=== PATIENT | female | born 1935 | race Caucasian/White ===

== ENCOUNTER 2017-09-04 10:03 | Inpatient (IN) | payer MEDICARE, BC ==
[~2017-09-04] VITALS: Ht 152.4 cm; Wt 68.0 kg
[~2017-09-04 10:03] MED LIST: ESCI20TA PO; FLUT1DIS28 IH; LEVO75TA7 PO; METO50TA16 PO; NATE120T6 PO; OXYB5TAB11 PO; SITA50TA PO; ZOLP5TAB2 PO
[2017-09-04] MEDS ORDERED: RIVA10TA PO (10:24)
[2017-09-04] MEDS ORDERED: TRAZ-144 PO (10:24)
[2017-09-04] MEDS ORDERED: LISI2.5T2 PO (10:24)
[2017-09-04] MEDS ORDERED: TIOT18CA3 INH (10:24)
[2017-09-04] MEDS ORDERED: ATOR10TA PO (10:24)
[2017-09-04] MEDS ORDERED: TRAV5DRO EACHEYE (10:24)
[2017-09-04] MEDS ORDERED: PANT40TA2 PO (10:24)
--- NOTE | 2017-09-04 10:37 | NUR ---
PT BIBA W/ ALTERED MENTAL STATUS. PT IN BED. IV STARTED. ASSOCIATE STORE DIRECTOR AT BEDSIDE DRAWING LABS. AWAITING FURTHER MD ORDERS. VS STABLE. WILL CONTINUE TO MONITOR.
[2017-09-04 10:57] LABS: BASOPHILS % (AUTO) 0.5 % (0.0-2.0); EOSINOPHILS # (AUTO) 0.2 K/uL (0.0-0.7); EOSINOPHILS % (AUTO) 2.9 % (0.0-7.0); HEMATOCRIT 32.6 % (31.2-41.9); HEMOGLOBIN 10.8 g/dL (10.9-14.3); LYMPHOCYTES # (AUTO) 0.5 K/uL (20.0-40.0); LYMPHOCYTES % (AUTO) 9.1 % (20.5-51.5); MEAN CORPUSCULAR HEMOGLOBIN 29.4 uug (24.7-32.8); MEAN CORPUSCULAR HGB CONC 33 g/dL (32.3-35.6); MEAN CORPUSCULAR VOLUME 88.4 fL (75.5-95.3); MONOCYTES # (AUTO) 0.3 K/uL (2.0-10.0); MONOCYTES % (AUTO) 6.2 % (0.0-11.0); NEUTROPHILS # (AUTO) 4.3 K/uL (1.8-8.9); NEUTROPHILS % (AUTO) 81.3 % (38.5-71.5); PLATELET COUNT (AUTO) 128 K/uL (179-408); RED BLOOD CELL COUNT(AUTO) 3.68 MIL/uL (3.63-4.92); WHITE BLOOD COUNT (AUTO) 5.3 K/uL (3.8-11.8)
[2017-09-04 11:17] LABS: CARBON DIOXIDE 36 mmol/L (21-32); CHLORIDE 105 mmol/L (98-107); CREATININE 1.1 mg/dL (0.6-1.3); GLUCOSE 152 mg/dL (74-106); POTASSIUM 3.8 mmol/L (3.5-5.1); UREA NITROGEN, BLOOD 10 mg/dL (7-18)
[2017-09-04 11:22] LABS: ALANINE AMINOTRANSFERASE 14 U/L (14-59); ALKALINE PHOSPHATASE 59 U/L (50-136); ASPARTATE AMINOTRANSFERASE 18 U/L (15-37); BILIRUBIN,DIRECT 0.1 mg/dL (0.0-0.2); BILIRUBIN,TOTAL 0.5 mg/dL (0.2-1.0); TOTAL PROTEIN, SERUM 6.5 g/dL (6.4-8.2)
[2017-09-04 11:29] LABS: *BILIRUBIN,URIN NEGATIVE (NEGATIVE); *BLOOD, URINE 2+ (NEGATIVE); *CLARITY,URINE CLOUDY (CLEAR); *COLOR,URINE YELLOW (YELLOW); *KETONES,URINE NEGATIVE (NEGATIVE); *PROTEIN,URINE NEGATIVE (NEGATIVE); *UROBILINOGEN,URINE 0.2 E.U./dl (NORMAL); LEUKOCYTE ESTERASE ,URINE 2+ (NEGATIVE); NITRITE, URINE NEGATIVE (NEGATIVE); UGLUCOSE NEGATIVE (NEGATIVE)
[2017-09-04] MEDS ORDERED: LORAZEPAM 2 MG/1 ML VIAL IV ONE (11:30)
[2017-09-04] MEDS ORDERED: IV NORMAL SALINE 1000 ML BAG IV ONE (11:45)
[2017-09-04] MEDS ORDERED: LEVOFLOXACIN 750MG/D5W 150 ML IV ONE ×2 (11:45→12:15)
[2017-09-04] MEDS ORDERED: CLINDAMYCIN PHOSPHATE IV 600 MG in IV DEXTROSE 5% 100 ML IV ONE (11:45)
[2017-09-04 11:46] LABS: RBC,URINE 20-50 /HPF (0-3); WBC,URINE TNTC /HPF (0-3)
[2017-09-04 11:47] LABS: BACTERIA,URINE MODERATE /HPF (NONE SEEN); MUCUS,URINE MODERATE /LPF (0-FEW); SQUAMOUS EPITHELIAL CELL,UR FEW /HPF (NONE SEEN)
[2017-09-04] MEDS ORDERED: CLINDAMYCIN PHOSPHATE 600 MG/4 ML VIAL ONE (12:15)
[2017-09-04] MEDS ORDERED: GENTAMICIN SULFATE INJ 80 MG in IV DEXTROSE 5% 100 ML IV ONE (12:15)
--- NOTE | 2017-09-04 12:15 | NUR ---
KIMMY HERNANDEZ. WITNESS BY 2 FEMALE NURSING STUDENTS FROM [facility].
--- NOTE | 2017-09-04 12:28 | NUR ---
PT IN BED. PT IS ASLEEP. VS STABLE. PT RECEIVING IV MEDS. FAMILY AT BEDSIDE. FAMILY CONSULTED BY MD. AWAITING FURTHER MD ORDERS.
[2017-09-04] MEDS ORDERED: GENTAMICIN SULFATE 80 MG/2 ML VIAL ONE (13:46)
--- NOTE | 2017-09-04 15:17 | NUR ---
SBAR REPORT TO 2ND FLOOR RONALD JIMENEZ. PT REC'D ALL ANTIBIOTICS, PT RECEIVED 1100 ML ODF NS AND RONALD WHITTAKER COMPLETED THE 2100 ML INFUSION. ADMIT ORDER/BELONGINGS LIST COMPLETED. PT TO RMM 225 VIA GUERNEY/O2/MONITOR.
[2017-09-04 15:45] VITALS: BP 150/86
[2017-09-04] MEDS ORDERED: ACETAMINOPHEN 650 MG SUPP.RECT RC PRN (19:15)
[2017-09-04] MEDS ORDERED: LEVOFLOXACIN 500 MG/D5W 500 MG in PREMIXED 1 EACH IV SCH (19:15)
[2017-09-04] MEDS ORDERED: MORPHINE SULFATE 2 MG/1 ML DISP.SYRIN IV PRN (19:15)
[2017-09-04] MEDS ORDERED: ENALAPRILAT DIHYDRATE INJ 2.5 MG in IV NORMAL SALINE 50 ML IV PRN (19:15)
[2017-09-04] MEDS ORDERED: ALBUTEROL SULFATE 2.5 MG/3 ML NEBU NEB PRN (19:15)
--- NOTE | 2017-09-04 19:46 | NUR ---
CLINICAL PHARMACY NOTE:VANCOMYCIN DOSING Request for vancomycin dosing on 82 y/o female 5' 150lbs for uti.sepsis/pneumonia Temp 98.5 BUN 10 Scr 1.1 WBC 5.3 also on Levaquin Give vancomycin 1gm ivpb tonight. Ordered random vancomycin level in AM. Will dose according to levels.
[2017-09-04 20:51] VITALS: BP 165/79
[2017-09-04] MEDS ORDERED: FAMOTIDINE. 20 MG/2 ML VIAL IV SCH (21:00)
[2017-09-04] MEDS ORDERED: VANCOMYCIN IV 1 G in PREMIXED 0 EACH IV ONE (21:00)
[2017-09-04 21:16] VITALS: BP 147/72
[2017-09-04] MEDS: FAMOTIDINE. 20 MG/2 ML VIAL IV SCH (21:35)
[2017-09-04] MEDS: LORAZEPAM 2 MG/1 ML VIAL IV PRN (21:57)
[2017-09-04] MEDS: IV D5 1/2 NS 1000 ML 1,000 ML IV PRN (23:55)
[2017-09-05 00:08] VITALS: BP 146/68
[2017-09-05] MEDS: MORPHINE SULFATE 4 MG/1 ML DISP.SYRIN IV PRN ×2 (01:40→20:58)
[2017-09-05] MEDS ORDERED: DEXTROSE 50% 50 ML DISP.SYRIN IV PRN (01:45)
--- NOTE | 2017-09-05 06:28 | NUR ---
NURSING CLINICAL NOTE: Pt is still lethargic, and non-compliant with the staff. on 3 L NC, sating well. mild bloody drainage noticed on the folly site. no acute distress noted throughout the night. Will cont to monitor and endorse pt to the next RN to cont the care.
[2017-09-05] MEDS: BLOOD SUGAR DIAGNOSTIC 1 EACH STRIP VI SCH ×4 (06:40→20:58)
[2017-09-05 06:43] VITALS: BP 147/94
[2017-09-05 06:59] LABS: ALANINE AMINOTRANSFERASE 13 U/L (14-59); ALKALINE PHOSPHATASE 53 U/L (50-136); ASPARTATE AMINOTRANSFERASE 15 U/L (15-37); BILIRUBIN,TOTAL 0.7 mg/dL (0.2-1.0); CARBON DIOXIDE 35 mmol/L (21-32); CHLORIDE 105 mmol/L (98-107); CHOLESTEROL 101 mg/dL (<200); CREATININE 0.9 mg/dL (0.6-1.3); GLUCOSE 102 mg/dL (74-106); HDL CHOLESTEROL 70 mg/dL (40-60); MAGNESIUM 1.8 mg/dL (1.8-2.4); PHOSPHOROUS 3.7 mg/dL (2.5-4.9); POTASSIUM 3.9 mmol/L (3.5-5.1); TOTAL PROTEIN, SERUM 6.2 g/dL (6.4-8.2); TRIGLYCERIDES 71 MG/DL (30-150); UREA NITROGEN, BLOOD 10 mg/dL (7-18)
[2017-09-05 07:29] LABS: THYROID STIMULATING HORMONE 0.474 mIU/mL (0.358-3.740)
[2017-09-05 07:35] LABS: BASOPHILS % (AUTO) 0.7 % (0.0-2.0); EOSINOPHILS # (AUTO) 0.1 K/uL (0.0-0.7); EOSINOPHILS % (AUTO) 2.6 % (0.0-7.0); HEMATOCRIT 32.3 % (31.2-41.9); HEMOGLOBIN 10.9 g/dL (10.9-14.3); LYMPHOCYTES # (AUTO) 0.6 K/uL (20.0-40.0); LYMPHOCYTES % (AUTO) 14.9 % (20.5-51.5); MEAN CORPUSCULAR HEMOGLOBIN 30.5 uug (24.7-32.8); MEAN CORPUSCULAR HGB CONC 34 g/dL (32.3-35.6); MEAN CORPUSCULAR VOLUME 90.5 fL (75.5-95.3); MONOCYTES # (AUTO) 0.4 K/uL (2.0-10.0); MONOCYTES % (AUTO) 10.9 % (0.0-11.0); NEUTROPHILS # (AUTO) 2.8 K/uL (1.8-8.9); NEUTROPHILS % (AUTO) 70.9 % (38.5-71.5); PLATELET COUNT (AUTO) 128 K/uL (179-408); RED BLOOD CELL COUNT(AUTO) 3.57 MIL/uL (3.63-4.92)
[2017-09-05] MEDS: ONDANSETRON 4 MG/2 ML VIAL IV PRN ×2 (07:55→20:43)
[2017-09-05] MEDS: FAMOTIDINE. 20 MG/2 ML VIAL IV SCH ×2 (09:39→20:43)
[2017-09-05] MEDS: IV D5 1/2 NS 1000 ML 1,000 ML IV PRN (11:28)
[2017-09-05 11:36] VITALS: BP 123/81
[2017-09-05] MEDS: LEVOFLOXACIN 250MG /D5W 250 MG in PREMIXED 1 EACH IV SCH (15:12)
--- NOTE | 2017-09-05 15:18 | NUR ---
CLINICAL PHARMACY NOTE:VANCOMYCIN DOSING Continue vancomycin dosing on 82 y/o female 5' 150lbs for uti.sepsis/pneumonia Temp 99.2 BUN 10 Scr 0.9 WBC 4.0 also on Levaquin Ordered random vancomycin level tonight at 1900. Will dose according to levels. Addendum: 09/05/17 at 2002 by RAZIA ANNE ADM RANDOM LEVEL LESS THAN 0.8. GIVE VANCOMYCIN 1000MG IVPB Q24H ESTIMATE TROUGH 16-18. WILL ORDER TROUGH LEVEL PRIOR TO 4TH DOSE
[2017-09-05 15:23] VITALS: BP 158/77
[2017-09-05 20:00] VITALS: BP_SYST 138; BP_SYST 148; BP_DIAS 66; BP_DIAS 76
[2017-09-05] MEDS: LACTOBACILLUS RHAMNOSUS GG 1 EACH CAPSULE PO SCH (20:07)
[2017-09-05] MEDS: VANCOMYCIN IV 1 G in PREMIXED 0 EACH IV SCH (20:43)
[2017-09-06 00:01] VITALS: BP 130/73
[2017-09-06 04:00] VITALS: BP 156/60
[2017-09-06] MEDS: ONDANSETRON 4 MG/2 ML VIAL IV PRN (05:02)
[2017-09-06] MEDS: MORPHINE SULFATE 4 MG/1 ML DISP.SYRIN IV PRN (05:02)
[2017-09-06] MEDS: IV D5 1/2 NS 1000 ML 1,000 ML IV PRN ×2 (05:03→20:54)
--- NOTE | 2017-09-06 05:26 | NUR ---
PT SLEPT INTERMITTENTLY THROUGH THE NIGHT AND WAS EASILY AWOKEN, PT COMPLAINED OF PAIN, MOANING PAIN AND SAYING SHE IS THROWING UP WHILE SHE WAS ONLY COUGHING, PAIN MEDICATION AND ZOFRAN WAS GIVEN AND WAS EFFECTIVE. PT WAS SUCTIONED THROUGH THE NIGHT,SCANT AMOUNT OF THICK MUCOUS WAS REMOVED. PT IS TOLERATING WELL ON 3L NC. PT IS RESTLESS AND IN THE MORNING COMBATIVE, PT HAD MITTENS ON SINCE PT WAS TRYING PULLING OUT HER LINES AND IN THE MORNING PT WOULD HIT STAFF. ALL NEEDS MET, SAFETY MEASURES ARE IN PLACE, CALL LIGHT WITHIN REACH, BED ALARM IS ON. Addendum: 09/06/17 at 0659 by TRISTEN TORRES RN PT HAD SLIGHT FEVER DURING THE SHIFT, COOLING MEASURES PROVIDED AND EFFECTIVE.
[2017-09-06 06:12] LABS: ABG BASE EXCESS 6.2 mmol/L; ABG HCO3 34.8 mmol/L; ABG PCO2 73.6 mmHg (35.0-45.0); ABG PH 7.293 (7.350-7.450); ABG PO2 74.1 mmHg (75.0-100.0); ABG SITE RIGHT BRACHIAL; ABG TOTAL HEMOGLOBIN 11.6 G/dL (12.0-16.0); COHb 2.6 % (0.5-1.5); MetHb 0.5 % (0.0-1.5); O2Hb 92.2 % (94.0-97.0); VENT MODE Nasal Cannula
[2017-09-06] MEDS: BLOOD SUGAR DIAGNOSTIC 1 EACH STRIP VI SCH ×4 (06:37→21:03)
--- NOTE | 2017-09-06 06:54 | NUR ---
PT HAD A CRITICAL ABG, PT'S pCO2 WAS ELEVATED, NOTIFIED COUNTER CUTTER BRANDON. ORDERS FOR BIPAP WAS ORDERED, NOTIFIED RT.
[2017-09-06] MEDS: LACTOBACILLUS RHAMNOSUS GG 1 EACH CAPSULE PO SCH ×2 (09:00→20:43)
[2017-09-06] MEDS: FAMOTIDINE. 20 MG/2 ML VIAL IV SCH ×2 (10:00→20:54)
--- NOTE | 2017-09-06 10:07 | NUR ---
SUCTIONED SMALL AMOUNTS OF THIN BLOODY AND YELLOW SECRETIONS VIA NT SUCTION. PLACED BIPAP @ 0720 PER MD ORDERS. SETTINGS OF 15/5, RATE 16, 40%. SPO2 AT 94%. NO COMPLICATIONS AND NO SOB AT THIS TIME. WILL CONTINUE TO MONITOR.
[2017-09-06 11:39] VITALS: BP 99/51
--- NOTE | 2017-09-06 13:37 | NUR ---
CLINICAL PHARMACY NOTE:VANCOMYCIN DOSING S;Continue vancomycin dosing on 82 y/o female 5' 150lbs for uti.sepsis/pneumonia O:Temp 101.2 BUN 10(09/05) Scr 0.9 (09/05) WBC 4.0(09/05) also on Levaquin A/P: Will continue Vancomycin 1 gram IV every 24hrs (third dose due tonight at 2100) and draw trough by 4th dose(not ordered yet). Will follow daily.
[2017-09-06] MEDS: LORAZEPAM 2 MG/1 ML VIAL IV PRN (13:39)
[2017-09-06] MEDS: LEVOFLOXACIN 250MG /D5W 250 MG in PREMIXED 1 EACH IV SCH (14:24)
[2017-09-06 15:01] LABS: BASOPHILS % (AUTO) 0.6 % (0.0-2.0); EOSINOPHILS # (AUTO) 0.1 K/uL (0.0-0.7); EOSINOPHILS % (AUTO) 1.5 % (0.0-7.0); HEMATOCRIT 34.1 % (31.2-41.9); HEMOGLOBIN 11.4 g/dL (10.9-14.3); LYMPHOCYTES # (AUTO) 0.5 K/uL (20.0-40.0); LYMPHOCYTES % (AUTO) 13.5 % (20.5-51.5); MEAN CORPUSCULAR HEMOGLOBIN 29.4 uug (24.7-32.8); MEAN CORPUSCULAR HGB CONC 34 g/dL (32.3-35.6); MEAN CORPUSCULAR VOLUME 87.5 fL (75.5-95.3); MONOCYTES # (AUTO) 0.5 K/uL (2.0-10.0); MONOCYTES % (AUTO) 12.4 % (0.0-11.0); NEUTROPHILS # (AUTO) 2.8 K/uL (1.8-8.9); PLATELET COUNT (AUTO) 142 K/uL (179-408); RED BLOOD CELL COUNT(AUTO) 3.89 MIL/uL (3.63-4.92)
[2017-09-06 15:09] LABS: ALANINE AMINOTRANSFERASE 10 U/L (14-59); ALKALINE PHOSPHATASE 54 U/L (50-136); ASPARTATE AMINOTRANSFERASE 13 U/L (15-37); BILIRUBIN,TOTAL 0.6 mg/dL (0.2-1.0); CARBON DIOXIDE 37 mmol/L (21-32); CHLORIDE 102 mmol/L (98-107); CREATININE 0.9 mg/dL (0.6-1.3); GLUCOSE 145 mg/dL (74-106); MAGNESIUM 1.8 mg/dL (1.8-2.4); PHOSPHOROUS 3.8 mg/dL (2.5-4.9); POTASSIUM 3.8 mmol/L (3.5-5.1); TOTAL PROTEIN, SERUM 6.2 g/dL (6.4-8.2); UREA NITROGEN, BLOOD 7 mg/dL (7-18)
[2017-09-06 16:04] VITALS: BP 90/68
--- NOTE | 2017-09-06 17:57 | NUR ---
PT IS RESTING AND ON THE BIPAP AT 40%. PT SHOWING NO SIGNS OF RESPIRATORY DISTRESS. O2 SATURATION OF 97%. PT GIVEN AN ATIVAN TODAY FOR AGITATION. PT WAS PULLING OUT LINES AND TAKING OFF FACE MASK. PT IS A0X1. VITALS STABLE. CONTINUE TO MONITOR.
[2017-09-06 19:00] VITALS: BP 124/70
[2017-09-06] MEDS: VANCOMYCIN IV 1 G in PREMIXED 0 EACH IV SCH (20:54)
[2017-09-06] MEDS: INSULIN REGULAR, HUMAN 300 UNIT/3 ML VIAL SQ PRN (21:08)
[2017-09-07] VITALS: BP 123/73
[2017-09-07 04:00] VITALS: BP_SYST 124; BP_SYST 135; BP_DIAS 51; BP_DIAS 76
--- NOTE | 2017-09-07 06:21 | NUR ---
pt on bipap overnight ,intermittent agitation, yelling and cursing pt very confused, disoriented,pt was restless during pericare and bedbath last night then lynch pulled out. no bleeding noted . incontinent with urine this morning,no bm. kept npo, midline intact covered with acewrap. blood return noted.continue with iv fluids.low grade fever,bp wnl. will continue to monitor.mittens kept on and in place.
[2017-09-07 06:23] LABS: ABG BASE EXCESS 8.2 mmol/L; ABG PCO2 67.1 mmHg (35.0-45.0); ABG PH 7.347 (7.350-7.450); ABG PO2 108.4 mmHg (75.0-100.0); ABG SITE RIGHT BRACHIAL; ABG TOTAL HEMOGLOBIN 11.9 G/dL (12.0-16.0); MetHb 0.2 % (0.0-1.5); O2Hb 96.9 % (94.0-97.0); VENT MODE BIPAP
[2017-09-07 06:37] LABS: BASOPHILS % (AUTO) 0.4 % (0.0-2.0); EOSINOPHILS # (AUTO) 0.1 K/uL (0.0-0.7); EOSINOPHILS % (AUTO) 1.4 % (0.0-7.0); HEMATOCRIT 31.6 % (31.2-41.9); HEMOGLOBIN 10.6 g/dL (10.9-14.3); LYMPHOCYTES # (AUTO) 0.9 K/uL (20.0-40.0); LYMPHOCYTES % (AUTO) 16.6 % (20.5-51.5); MEAN CORPUSCULAR HEMOGLOBIN 29.6 uug (24.7-32.8); MEAN CORPUSCULAR HGB CONC 33 g/dL (32.3-35.6); MEAN CORPUSCULAR VOLUME 88.8 fL (75.5-95.3); MONOCYTES # (AUTO) 0.7 K/uL (2.0-10.0); MONOCYTES % (AUTO) 13.4 % (0.0-11.0); NEUTROPHILS # (AUTO) 3.7 K/uL (1.8-8.9); NEUTROPHILS % (AUTO) 68.2 % (38.5-71.5); PLATELET COUNT (AUTO) 160 K/uL (179-408); RED BLOOD CELL COUNT(AUTO) 3.56 MIL/uL (3.63-4.92); WHITE BLOOD COUNT (AUTO) 5.4 K/uL (3.8-11.8)
[2017-09-07] MEDS: BLOOD SUGAR DIAGNOSTIC 1 EACH STRIP VI SCH ×4 (06:57→21:00)
[2017-09-07 07:04] LABS: CARBON DIOXIDE 33 mmol/L (21-32); CHLORIDE 100 mmol/L (98-107); CREATININE 0.9 mg/dL (0.6-1.3); MAGNESIUM 1.6 mg/dL (1.8-2.4); PHOSPHOROUS 2.9 mg/dL (2.5-4.9); POTASSIUM 3.3 mmol/L (3.5-5.1); UREA NITROGEN, BLOOD 6 mg/dL (7-18)
--- NOTE | 2017-09-07 07:16 | NUR ---
PT RECEIVED WITH BIPAP OFF. PT REMOVED BIPAP AND WAS PLACED ON SIMPLE 02 MASK AT 8LPM . PT SPO2 98 AND HR 92. PT SHOWS NO SIGNS OF SOB AND IS TOLERATING SIMPLE 02 MASK FINE
--- NOTE | 2017-09-07 07:52 | NUR ---
PT RESTLESS AND KEEPS ON REMOVING 02 MASK. PT THEN PLACED ON 2LPM NC WITH SPO2 AT 98% SHOWING NO SIGNS OF DISTRESS. BIPAP REMAINS ON STAND BY
[2017-09-07 08:41] LABS: GLUCOSE 399 mg/dL (74-106)
[2017-09-07] MEDS: INSULIN REGULAR, HUMAN 300 UNIT/3 ML VIAL SQ PRN ×2 (08:58→17:41)
[2017-09-07] MEDS: LACTOBACILLUS RHAMNOSUS GG 1 EACH CAPSULE PO SCH ×2 (09:54→20:18)
[2017-09-07] MEDS: FAMOTIDINE. 20 MG/2 ML VIAL IV SCH ×2 (09:54→20:17)
[2017-09-07] MEDS: LORAZEPAM 2 MG/1 ML VIAL IV PRN ×2 (10:53→22:00)
[2017-09-07 11:59] VITALS: BP 106/61
[2017-09-07] MEDS: LEVOFLOXACIN 250MG /D5W 250 MG in PREMIXED 1 EACH IV SCH (13:03)
[2017-09-07] MEDS ORDERED: POTASSIUM CHLORIDE 50 ML IV SCH (13:15)
[2017-09-07] MEDS ORDERED: POTASSIUM CHLORIDE 10 MEQ in IV DEXTROSE 5% 50 ML IV SCH (13:30)
[2017-09-07] MEDS: MAGNESIUM SULFATE/D5W 100 ML IV SCH ×2 (13:58→14:38)
[2017-09-07] MEDS: MORPHINE SULFATE 4 MG/1 ML DISP.SYRIN IV PRN (14:07)
--- NOTE | 2017-09-07 14:07 | NUR ---
PT GIVEN PAIN MEDICATION. PT SCREAMING "PAIN!" PT IS UNABLE TO VERBALIZE LEVEL OF PAIN. FLACC WAS USED TO DETERMINE PT PAIN. PT APPEARS IN PAIN 10/10. CONTINUE TO MONITOR.
--- NOTE | 2017-09-07 16:15 | NUR ---
CLINICAL PHARMACY NOTE:VANCOMYCIN DOSING S;Continue vancomycin dosing on 82 y/o female 5' 150lbs for uti.sepsis/pneumonia O:Temp 100 BUN 6 Scr 0.9 WBC 5.4 also on Levaquin A/P: Will continue Vancomycin 1 gram IV every 24hrs (third dose due tonight at 2100) and draw trough by 4th dose(due tonight at 2030). RN endorsed to hold dose if Tr >20. Will check level in am and adjust as needed. Will follow daily.
[2017-09-07 16:21] VITALS: BP 116/66
--- NOTE | 2017-09-07 19:07 | NUR ---
PT OBSERVED RESTING IN BED CALM, PT GIVEN ATIVAN FOR AGITATION AND MORPHINE FOR PAIN. BOTH MEDS WERE EFFECTIVE. PT SHOWS NO SIGNS OF RESPIRATORY DISTRESS AND BED AT LOWEST LOCKED POSITION . CONTINUE TO MONITOR.
[2017-09-07 20:00] VITALS: BP 94/69
[2017-09-07] MEDS: IV D5 1/2 NS 1000 ML 1,000 ML IV PRN (20:20)
[2017-09-07] MEDS: VANCOMYCIN IV 1 G in PREMIXED 0 EACH IV SCH (22:00)
[2017-09-08 00:10] VITALS: BP 134/74
[2017-09-08] MEDS: ENOXAPARIN SODIUM 80 MG/0.8 ML DISP.SYRIN SQ SCH ×3 (00:58→21:50)
[2017-09-08] MEDS ORDERED: ENOXAPARIN SODIUM 80 MG/0.8 ML DISP.SYRIN SQ ONE (01:02)
[2017-09-08 04:00] VITALS: BP 125/69
[2017-09-08] MEDS: methylPREDNISolone SOD SUCC 40 MG/ML VIAL IV SCH ×3 (05:16→21:51)
[2017-09-08] MEDS ORDERED: methylPREDNISolone SOD SUCC 40 MG/ML VIAL ONE (05:32)
--- NOTE | 2017-09-08 06:00 | NUR ---
PT CONFUSED, RESTLESS ALL NIGHT, HAD TO MEDICATE ATIVAN, PT KEEP PULLING BIPAP AND PT DESATS TO 79%.MITTENS ON AT ALL TIMES.VANCO TROUGH LEVEL LOW, CONTINUE WITH VANCO.MIDLINE INTACT IV FLUIDS INFUSING WELL, KEPT ARMS ELEVATED,BRUISING ,SWELLING TO BOTH ARMS REMAINS THE SAME. WILL CONTINUE TO MONITOR.NO BM .INCONTINENT OF URINE.
[2017-09-08 06:03] LABS: ABG BASE EXCESS 10.7 mmol/L; ABG HCO3 40.1 mmol/L; ABG PCO2 84.2 mmHg (35.0-45.0); ABG PH 7.296 (7.350-7.450); ABG PO2 74.4 mmHg (75.0-100.0); ABG SITE RIGHT BRACHIAL; ABG TOTAL HEMOGLOBIN 11.7 G/dL (12.0-16.0); COHb 1.7 % (0.5-1.5); MetHb 0.2 % (0.0-1.5); O2Hb 92.6 % (94.0-97.0); VENT MODE Nasal Cannula
[2017-09-08 06:18] LABS: BASOPHILS % (AUTO) 0.5 % (0.0-2.0); EOSINOPHILS # (AUTO) 0.2 K/uL (0.0-0.7); EOSINOPHILS % (AUTO) 3.3 % (0.0-7.0); HEMATOCRIT 32.9 % (31.2-41.9); LYMPHOCYTES # (AUTO) 0.8 K/uL (20.0-40.0); LYMPHOCYTES % (AUTO) 16.4 % (20.5-51.5); MEAN CORPUSCULAR HEMOGLOBIN 29.2 uug (24.7-32.8); MEAN CORPUSCULAR HGB CONC 34 g/dL (32.3-35.6); MEAN CORPUSCULAR VOLUME 87.2 fL (75.5-95.3); MONOCYTES # (AUTO) 0.7 K/uL (2.0-10.0); MONOCYTES % (AUTO) 13.4 % (0.0-11.0); NEUTROPHILS # (AUTO) 3.4 K/uL (1.8-8.9); NEUTROPHILS % (AUTO) 66.4 % (38.5-71.5); PLATELET COUNT (AUTO) 150 K/uL (179-408); RED BLOOD CELL COUNT(AUTO) 3.77 MIL/uL (3.63-4.92); WHITE BLOOD COUNT (AUTO) 5.1 K/uL (3.8-11.8)
[2017-09-08 06:25] LABS: ALANINE AMINOTRANSFERASE 8 U/L (14-59); ALKALINE PHOSPHATASE 49 U/L (50-136); ASPARTATE AMINOTRANSFERASE 12 U/L (15-37); BILIRUBIN,TOTAL 0.7 mg/dL (0.2-1.0); CARBON DIOXIDE 37 mmol/L (21-32); CHLORIDE 103 mmol/L (98-107); CREATININE 0.8 mg/dL (0.6-1.3); GLUCOSE 123 mg/dL (74-106); MAGNESIUM 2.1 mg/dL (1.8-2.4); PHOSPHOROUS 2.7 mg/dL (2.5-4.9); POTASSIUM 3.7 mmol/L (3.5-5.1); TOTAL PROTEIN, SERUM 5.8 g/dL (6.4-8.2); UREA NITROGEN, BLOOD 6 mg/dL (7-18)
--- NOTE | 2017-09-08 07:25 | NUR ---
PAGED DR. WU REGARDING ABG RESULT pCO2 IS 84.2, ORDER DIAMOX 500MG IV DAILY. AND ORDER CARRIED OUT.
[2017-09-08] MEDS: BLOOD SUGAR DIAGNOSTIC 1 EACH STRIP VI SCH ×4 (08:24→21:51)
[2017-09-08] MEDS: ACETAzolamide SODIUM 500 MG VIAL IV SCH (09:00)
[2017-09-08] MEDS: FAMOTIDINE. 20 MG/2 ML VIAL IV SCH ×2 (09:00→21:54)
[2017-09-08] MEDS: FUROSEMIDE 20 MG/2 ML VIAL IV SCH (09:34)
[2017-09-08] MEDS: INSULIN REGULAR, HUMAN 300 UNIT/3 ML VIAL SQ PRN ×2 (09:58→21:53)
[2017-09-08] MEDS: INSULIN DETEMIR 300 UNIT/3 ML CARTRIDGE SQ SCH ×2 (10:04→21:54)
[2017-09-08] MEDS: ALBUTEROL SULFATE 2.5 MG/3 ML NEBU NEB SCH ×3 (11:34→19:07)
[2017-09-08] MEDS: IPRATROPIUM BROMIDE 0.5 MG/2.5 ML NEBU NEB SCH ×3 (11:34→19:07)
[2017-09-08 11:40] VITALS: BP 135/76
[2017-09-08] MEDS: LEVOFLOXACIN 250MG /D5W 250 MG in PREMIXED 1 EACH IV SCH (13:00)
[2017-09-08 15:38] VITALS: BP 137/71
--- NOTE | 2017-09-08 17:28 | NUR ---
pt received this morning on bipap 15/5, 16, and 30%. no signs of tissue breakdown around the bridge of nose, cheek, and forehead. pt shows no signs of respiratory distress or SOB. tolerating bipap settings well. pt tolerated the q4 breathing tx well as they were ordered mid shift. will continue to monitor.
--- NOTE | 2017-09-08 19:07 | NUR ---
Pt received on BIPAP with settings of IPAP 15, EPAP 5, respiratory rate of 16, FiO2 30%. Pt tolerating BIPAP at this time. Placed mepilex to protect skin breakdown from mask. Inline tx given per md order. Continuous pulse-ox on pt at this time. Saturation is 95%. BIPAP alarms are audible. Will continue to monitor pt throughout shift.
[2017-09-08 20:00] VITALS: BP 107/65
--- NOTE | 2017-09-08 20:00 | NUR ---
RECEIVED REPORT FROM AM NURSE STATED THAT THE MIDLINE SITE AT LEFT UPPER ARM'S NOT WORKING IN THE EVENING DUE TO IT'S CLOT;I'S ABLE TO FLUSH W/NSS 30 ML;NO S/S OF LEAKING OR ANY CLOT NOTED.PT'S ON (B)MITTENS DUE TO MEDICAL STATUS;PT'S CONFUSED AND TRIED TO REMOVE BIPAP AND GOB WITHOUT ASKING FOR ASSISTANCE.PER RAZIA/RT WHO SET UP BIPAP STATED THAT PT'S ON BIPAP 15/5 RATE 16 AND FIO2 30%;O2 SAT'S IN THE NORMAL RANGE/NO SOB NOTED.CONTINUED MONITORING TO PT.
[2017-09-08] MEDS: LORAZEPAM 2 MG/1 ML VIAL IV PRN (23:26)
--- NOTE | 2017-09-08 23:30 | NUR ---
PT'S MOVING AROUND ON BED AND TRIED TO REMOVE THE MASK FROM BIPAP;ATIVAN 0.5 MG IVP X1 TO PT ASSISTED TO REPOSITION.MOUTH CARE TO PT.KEPT NPO AND MAINTAINED IVF ORDER.TELEMETRY'S A.FIB CONTROLLED,20 MINUTES;PT'S CALM.CONTINUED MONITORING TO PT.BED ALARM'S ON.O2 SAT'S 100% NOTED.
[2017-09-08] MEDS: IV D5 1/2 NS 1000 ML 1,000 ML IV PRN (23:40)
[2017-09-09] VITALS: BP 115/47
--- NOTE | 2017-09-09 01:00 | NUR ---
PT'S ABLE TO REMOVED A LEFT MITTEN;ASSISTED PT TO REPOSITION;RAZIA/RT CAME TO ADJUST BIPAP DUE TO PT REMOVED IT OUT;CLOSELY MONITORING TO PT FOR 15 MINUTES;PT'S CALM BUT STILL NEEDED TO BE CLOSELY MONITORING TO PT.
[2017-09-09 04:00] VITALS: BP 110/52
--- NOTE | 2017-09-09 06:00 | NUR ---
ASSISTED PT FOR AM;SKIN CARE ON BED;PT'S VERY CONFUSION WHILE GETTING CARE,KEPT SAYING SOME WORDS THAT WE COULDN'T UNDERSTAND NOTED.KEPT NPO AND MAINTAINED IVF ORDER,STILL NEEDED (B)MITTENS DUE TO BEHAVIOR.PT'S MOVING WHILE AWAKE,SHE'S ABLE TO SLEEP ONLY 1-2 HOURS AT A TIME(TOTAL IN THE SHIFT ~4 HOURS .NO DISTRESS NOTED IN THE SHIFT,STILL REALLY NEEDED TO BE CLOSELY MONITORING TO PT.PT'S ON BIPAP ALL NIGHT AND NO SKIN BREAK DOWN NOTED.
[2017-09-09] MEDS: methylPREDNISolone SOD SUCC 40 MG/ML VIAL IV SCH ×3 (06:04→21:26)
[2017-09-09] MEDS: BLOOD SUGAR DIAGNOSTIC 1 EACH STRIP VI SCH ×4 (06:23→21:33)
[2017-09-09] MEDS: INSULIN REGULAR, HUMAN 300 UNIT/3 ML VIAL SQ PRN ×2 (06:24→21:34)
[2017-09-09 07:12] LABS: CARBON DIOXIDE 36 mmol/L (21-32); CHLORIDE 102 mmol/L (98-107); GLUCOSE 154 mg/dL (74-106); MAGNESIUM 2.2 mg/dL (1.8-2.4); PHOSPHOROUS 3.6 mg/dL (2.5-4.9); POTASSIUM 3.4 mmol/L (3.5-5.1); UREA NITROGEN, BLOOD 12 mg/dL (7-18)
[2017-09-09] MEDS: ALBUTEROL SULFATE 2.5 MG/3 ML NEBU NEB SCH ×4 (07:31→19:11)
[2017-09-09] MEDS: IPRATROPIUM BROMIDE 0.5 MG/2.5 ML NEBU NEB SCH ×4 (07:31→19:11)
[2017-09-09 07:44] LABS: BASOPHILS % (AUTO) 0.1 % (0.0-2.0); HEMATOCRIT 30.3 % (31.2-41.9); HEMOGLOBIN 10.5 g/dL (10.9-14.3); LYMPHOCYTES # (AUTO) 0.3 K/uL (20.0-40.0); LYMPHOCYTES % (AUTO) 5.6 % (20.5-51.5); MEAN CORPUSCULAR HEMOGLOBIN 30.8 uug (24.7-32.8); MEAN CORPUSCULAR HGB CONC 35 g/dL (32.3-35.6); MONOCYTES # (AUTO) 0.2 K/uL (2.0-10.0); MONOCYTES % (AUTO) 3.4 % (0.0-11.0); NEUTROPHILS # (AUTO) 4.1 K/uL (1.8-8.9); NEUTROPHILS % (AUTO) 90.9 % (38.5-71.5); PLATELET COUNT (AUTO) 162 K/uL (179-408); RED BLOOD CELL COUNT(AUTO) 3.41 MIL/uL (3.63-4.92); WHITE BLOOD COUNT (AUTO) 4.5 K/uL (3.8-11.8)
[2017-09-09 09:26] LABS: ABG PCO2 55.7 mmHg (35.0-45.0); ABG PH 7.416 (7.350-7.450); ABG PO2 81.1 mmHg (75.0-100.0); ABG SITE RIGHT BRACHIAL; ABG TOTAL HEMOGLOBIN 10.6 G/dL (12.0-16.0); COHb 0.8 % (0.5-1.5); MetHb 0.2 % (0.0-1.5); O2Hb 95.3 % (94.0-97.0); VENT MODE BIPAP- 15/5
[2017-09-09] MEDS: FAMOTIDINE. 20 MG/2 ML VIAL IV SCH ×2 (09:58→21:26)
[2017-09-09] MEDS: FUROSEMIDE 20 MG/2 ML VIAL IV SCH (09:58)
[2017-09-09] MEDS: INSULIN DETEMIR 300 UNIT/3 ML CARTRIDGE SQ SCH ×2 (10:00→21:43)
[2017-09-09] MEDS: ENOXAPARIN SODIUM 80 MG/0.8 ML DISP.SYRIN SQ SCH ×2 (10:03→21:27)
[2017-09-09] MEDS: ACETAzolamide SODIUM 500 MG VIAL IV SCH (11:05)
[2017-09-09 11:19] VITALS: BP 105/64
[2017-09-09] MEDS: IV D5 1/2 NS 1000 ML 1,000 ML IV PRN (13:28)
[2017-09-09] MEDS: LEVOFLOXACIN 250MG /D5W 250 MG in PREMIXED 1 EACH IV SCH (13:36)
--- NOTE | 2017-09-09 15:02 | NUR ---
pt received this morning on BiPAP settings of 15/5, 16, and 30%. pt is tolerating BiPAP at this time. is anxious when moved. mepilex is placed over face to prevent breakdown of the skin. tx given and tolerated. on a continuous pulse-ox. BiPAP alarms are audible. plugged into red outlet. AMBU bag at bedside. will continue to monitor pt.
[2017-09-09] MEDS: POTASSIUM CHLORIDE 10 MEQ in IV NORMAL SALINE 50 ML IV SCH ×2 (15:24→16:23)
[2017-09-09 15:51] VITALS: BP 119/61
--- NOTE | 2017-09-09 18:00 | NUR ---
INSULIN COVERAGE NOT GIVEN--PT. FAMILY [DAUGHTER] CONCERNED SINCE PT. NOT EATING WILL HAVE A SEVERE DROP IN BS AND REFUSES SLIDING SCALE.
--- NOTE | 2017-09-09 19:13 | NUR ---
Pt received on BiPAP with the following settings of I-15, E-5, PS-10, RR-16, FIO2-30%. Pt restless. No s/s of respiratory distress noted. In-line HHN tx given, pt tolerated well. BiPAP mask readjusted. Mepilex under the mask. Cont. pulse ox on. Alarms on and audible.
[2017-09-09 19:51] VITALS: BP 111/72
[2017-09-10 00:02] VITALS: BP 109/65
[2017-09-10 04:25] VITALS: BP 138/82
--- NOTE | 2017-09-10 04:56 | NUR ---
Cont. monitor pt on present BiPAP settings. During the shift no distress noted. Present BiPAP settings pt tolerated well, no changes to BiPAP settings made. Oral care done. Cont pulse ox on. Alarms on and audible.
--- NOTE | 2017-09-10 06:00 | NUR ---
pt lethargic all night, kept on bipap,30%,a-fib on monitor, this morning i tried to take blood from midline, pt slightly opening eyes and talk saying"what are you doing",but just that pt doesn;t converse and doses back to sleep, desats quickly to 79% when off bipap noted when oral care given, no bm, incontinent of urine.kept clean and dry.vss,afebrile
[2017-09-10] MEDS: BLOOD SUGAR DIAGNOSTIC 1 EACH STRIP VI SCH ×4 (06:23→20:04)
[2017-09-10] MEDS: methylPREDNISolone SOD SUCC 40 MG/ML VIAL IV SCH ×3 (06:23→21:25)
[2017-09-10] MEDS: IV D5 1/2 NS 1000 ML 1,000 ML IV PRN ×2 (06:43→20:19)
[2017-09-10] MEDS: ALBUTEROL SULFATE 2.5 MG/3 ML NEBU NEB SCH ×4 (07:15→19:11)
[2017-09-10] MEDS: IPRATROPIUM BROMIDE 0.5 MG/2.5 ML NEBU NEB SCH ×4 (07:15→19:11)
[2017-09-10] MEDS: ACETAzolamide SODIUM 500 MG VIAL IV SCH (08:03)
[2017-09-10] MEDS: FUROSEMIDE 20 MG/2 ML VIAL IV SCH (08:03)
[2017-09-10] MEDS: FAMOTIDINE. 20 MG/2 ML VIAL IV SCH ×2 (08:03→20:08)
[2017-09-10] MEDS: MORPHINE SULFATE 4 MG/1 ML DISP.SYRIN IV PRN (08:04)
[2017-09-10] MEDS: ENOXAPARIN SODIUM 80 MG/0.8 ML DISP.SYRIN SQ SCH ×2 (08:05→20:14)
[2017-09-10] MEDS: INSULIN DETEMIR 300 UNIT/3 ML CARTRIDGE SQ SCH ×2 (08:08→20:16)
--- NOTE | 2017-09-10 08:13 | NUR ---
DATA PROCESSING SYSTEMS PROJECT PLANNER REPORTED THAT HR 140,WENT TO CHECK ON PT.LAB DRAWING BLOOD.
[2017-09-10 08:44] LABS: CARBON DIOXIDE 35 mmol/L (21-32); CHLORIDE 104 mmol/L (98-107); GLUCOSE 128 mg/dL (74-106); POTASSIUM 3.4 mmol/L (3.5-5.1); UREA NITROGEN, BLOOD 17 mg/dL (7-18)
[2017-09-10 09:25] LABS: ABG BASE EXCESS 7.5 mmol/L; ABG HCO3 33.7 mmol/L; ABG PCO2 55.1 mmHg (35.0-45.0); ABG PH 7.404 (7.350-7.450); ABG PO2 95.6 mmHg (75.0-100.0); ABG SITE RIGHT BRACHIAL; ABG TOTAL HEMOGLOBIN 11.6 G/dL (12.0-16.0); COHb 0.8 % (0.5-1.5); MetHb 0.3 % (0.0-1.5); O2Hb 96.3 % (94.0-97.0); VENT MODE BIPAP
--- NOTE | 2017-09-10 09:47 | NUR ---
PT TAKEN OFF BIPAP POST ABG. DOING WELL ON 3 LPM NASAL CANNULA. RN AWARE. WILL CONTINUE TO MONITOR. BIPAP ON STAND BY.
[2017-09-10 11:19] VITALS: BP 106/73
[2017-09-10] MEDS: LEVOFLOXACIN 250MG /D5W 250 MG in PREMIXED 1 EACH IV SCH (12:19)
[2017-09-10] MEDS: INSULIN REGULAR, HUMAN 300 UNIT/3 ML VIAL SQ PRN (12:24)
[2017-09-10] MEDS: POTASSIUM CHLORIDE 50 ML IV SCH ×2 (13:36→14:05)
--- NOTE | 2017-09-10 13:41 | NUR ---
FAMILY MEMBERS AT BEDSIDE,UPDATED WITH PT.CONDITION AND PLAN OF CARE.
[2017-09-10 15:19] VITALS: BP 99/54
--- NOTE | 2017-09-10 18:09 | NUR ---
No changes in pt.condition.
--- NOTE | 2017-09-10 19:28 | NUR ---
PT IN ROOM ALERT AND CONFUSED. NO S/S OF ACUTE DISTRESS OR RESP DISTRESS. MITTENS RESTRAINTS MAINTAINED. OXYGEN 100% WITH 1L/MIN VIA N/C. NO S/S OF HYPER/HYPOGLYCEMIA. CONTINUE TO MONITOR. BED ALARM NOTED.
[2017-09-10] MEDS: LORAZEPAM 2 MG/1 ML VIAL IV PRN (19:57)
[2017-09-10 20:00] VITALS: BP 140/80
[2017-09-11 00:32] VITALS: BP 125/54
--- NOTE | 2017-09-11 01:00 | NUR ---
Pt in room in no respiratory distress. Bipap machine on and intact. oxygen sat noted 98%. Restraints temporarily removed. Pt sleeping at this time. Continue to monitor.
[2017-09-11 04:00] VITALS: BP 120/60
[2017-09-11] MEDS: methylPREDNISolone SOD SUCC 40 MG/ML VIAL IV SCH ×2 (05:00→14:14)
--- NOTE | 2017-09-11 05:09 | NUR ---
Pt in room asleep in no respiratory or increased agitation at this time. Pt noted with minimal periods of trying to remove bipap mask. Mittens in place to prevent pulling of IV line. v/s are WNL. Pt is A-fib controlled at this time. Pt repositioned and HOB maintained 30 degrees. IV d5 1/2 NS at 70ml continuing. Continue to monitor.
[2017-09-11 06:27] LABS: ALANINE AMINOTRANSFERASE 10 U/L (14-59); ALKALINE PHOSPHATASE 41 U/L (50-136); ASPARTATE AMINOTRANSFERASE 16 U/L (15-37); BILIRUBIN,DIRECT 0.1 mg/dL (0.0-0.2); BILIRUBIN,TOTAL 0.4 mg/dL (0.2-1.0); CARBON DIOXIDE 34 mmol/L (21-32); CHLORIDE 105 mmol/L (98-107); CREATININE 1.1 mg/dL (0.6-1.3); GLUCOSE 143 mg/dL (74-106); MAGNESIUM 2.1 mg/dL (1.8-2.4); PHOSPHOROUS 3.4 mg/dL (2.5-4.9); POTASSIUM 3.4 mmol/L (3.5-5.1); TOTAL PROTEIN, SERUM 5.6 g/dL (6.4-8.2); UREA NITROGEN, BLOOD 23 mg/dL (7-18)
[2017-09-11] MEDS: BLOOD SUGAR DIAGNOSTIC 1 EACH STRIP VI SCH ×3 (06:30→16:53)
[2017-09-11 06:39] LABS: LYMPHOCYTES # (AUTO) 0.2 K/uL (20.0-40.0); MONOCYTES # (AUTO) 0.4 K/uL (2.0-10.0); MONOCYTES % (AUTO) 5.6 % (0.0-11.0); NEUTROPHILS # (AUTO) 5.9 K/uL (1.8-8.9); PLATELET COUNT (AUTO) 158 K/uL (179-408)
[2017-09-11 06:50] LABS: HEMATOCRIT 31.5 % (31.2-41.9); HEMOGLOBIN 10.4 g/dL (10.9-14.3); MEAN CORPUSCULAR HEMOGLOBIN 29.6 uug (24.7-32.8); MEAN CORPUSCULAR HGB CONC 33 g/dL (32.3-35.6); MEAN CORPUSCULAR VOLUME 89.4 fL (75.5-95.3); NEUTROPHILS % (AUTO) 91.4 % (38.5-71.5); RED BLOOD CELL COUNT(AUTO) 3.52 MIL/uL (3.63-4.92)
[2017-09-11 06:56] LABS: WHITE BLOOD COUNT (AUTO) 6.4 K/uL (3.8-11.8)
[2017-09-11] MEDS: IPRATROPIUM BROMIDE 0.5 MG/2.5 ML NEBU NEB SCH ×3 (07:55→16:05)
[2017-09-11] MEDS: ALBUTEROL SULFATE 2.5 MG/3 ML NEBU NEB SCH ×3 (07:56→16:05)
[2017-09-11] MEDS: FAMOTIDINE. 20 MG/2 ML VIAL IV SCH (08:33)
[2017-09-11] MEDS: FUROSEMIDE 20 MG/2 ML VIAL IV SCH (08:33)
[2017-09-11] MEDS: ACETAzolamide SODIUM 500 MG VIAL IV SCH (08:33)
[2017-09-11] MEDS: ENOXAPARIN SODIUM 80 MG/0.8 ML DISP.SYRIN SQ SCH (08:36)
[2017-09-11] MEDS: INSULIN DETEMIR 300 UNIT/3 ML CARTRIDGE SQ SCH (08:41)
--- NOTE | 2017-09-11 10:00 | NUR ---
pt seen on rounding. pt removed on bipap and tolerates nc at 2 liter. pt sat wnl with continues pulse ox. midline intact. vitals stable. pt on diaper. no new injuries. pt has non productive cough. will continue to monitor.
[2017-09-11] MEDS: LORAZEPAM 2 MG/1 ML VIAL IV PRN ×2 (10:05→18:36)
[2017-09-11 10:19] LABS: ABG BASE EXCESS 6.6 mmol/L; ABG HCO3 32.6 mmol/L; ABG PCO2 53.6 mmHg (35.0-45.0); ABG PH 7.402 (7.350-7.450); ABG PO2 80.4 mmHg (75.0-100.0); ABG SITE LEFT RADIAL; ABG TOTAL HEMOGLOBIN 11.6 G/dL (12.0-16.0); COHb 0.9 % (0.5-1.5); MetHb 0.3 % (0.0-1.5); O2Hb 94.3 % (94.0-97.0); VENT MODE Nasal Cannula
[2017-09-11 11:08] VITALS: BP 131/68
[2017-09-11] MEDS: IV D5 1/2 NS 1000 ML 1,000 ML IV PRN (11:37)
[2017-09-11] MEDS ORDERED: POTASSIUM CHLORIDE 50 ML IV SCH ×2 (11:45→12:15)
[2017-09-11] MEDS: INSULIN REGULAR, HUMAN 300 UNIT/3 ML VIAL SQ PRN ×2 (11:58→16:54)
[2017-09-11] MEDS ORDERED: POTASSIUM CHLORIDE 10 MEQ in IV NORMAL SALINE 50 ML IV SCH (13:00)
[2017-09-11] MEDS: LEVOFLOXACIN 250MG /D5W 250 MG in PREMIXED 1 EACH IV SCH (13:26)
[2017-09-11] MEDS: POTASSIUM CHLORIDE 10 MEQ in IV NORMAL SALINE 50 ML IV SCH ×2 (14:17→15:32)
--- NOTE | 2017-09-11 15:00 | NUR ---
pt ordered to have replacement of potassium. pt vitals stable. will continue to monitor.
[2017-09-11 15:15] VITALS: BP 135/81
[2017-09-11] MEDS ORDERED: ACET500V2 IV (16:38)
[2017-09-11] MEDS ORDERED: METH40VI37 IV (16:38)
[2017-09-11] MEDS ORDERED: LORA2VIA6 IV (16:38)
[2017-09-11] MEDS ORDERED: Blood Sugar Diagnostic VI (16:38)
[2017-09-11] MEDS ORDERED: IPRA0.2S6 NEB (16:38)
[2017-09-11] MEDS ORDERED: ALBU2.5V7 NEB (16:38)
[2017-09-11] MEDS ORDERED: Morphine Sulfate Inj IV (16:38)
[2017-09-11] MEDS ORDERED: FAMO20VI2 IV (16:38)
[2017-09-11] MEDS ORDERED: INSU100I19 SQ (16:38)
[2017-09-11] MEDS ORDERED: FURO10VI IV (16:38)
[2017-09-11] MEDS ORDERED: CLON1PAT TD (16:38)
[2017-09-11] MEDS ORDERED: ACET650S24 RC (16:38)
[2017-09-11] MEDS ORDERED: ENOX80DI SQ (16:38)
[2017-09-11] MEDS ORDERED: METH40VI33 IV (16:38)
[2017-09-11] MEDS ORDERED: INSU100V28 SQ (16:38)
[2017-09-11] MEDS ORDERED: [UNRECOGNIZED DRUG - CODE] IV (16:38)
[2017-09-11] MEDS ORDERED: DEXT50DI8 IV (16:38)
--- NOTE | 2017-09-11 18:51 | NUR ---
pt stable throuhgout the day. labs ordered for tomorrow. no signs of bleeding on lynch. md cuevas has orders to dc lynch tomorrow. and do a post void bladder scan at 12. will endorse to computer equipment repairer nurse.
--- NOTE | 2017-09-11 19:35 | NUR ---
PT DISCHARGED WITH EMT WITH ALL BELONGINGS AND DOCUMENTS GIVEN. V/S STABLE AT THIS TIME.
== END 2017-09-11 19:37 | DRG 871 ==
LOC: ER 10:03 → TELE 15:13 → MED 09-11 11:54
PROVIDERS: ADMIT Internal Medicine; ATTEND Internal Medicine
PROC: 5A09457 Assistance with Respiratory Ventilation, 24-96 Consecutive Hours, Continuous Positive Airway Pressure (ICD-10-PCS; principal; 2017-09-04)
PROC: 05H633Z Insertion of Infusion Device into Left Subclavian Vein, Percutaneous Approach (ICD-10-PCS; 2017-09-05)
DX: A41.9 Sepsis, unspecified organism (principal); J96.22 Acute and chronic respiratory failure with hypercapnia; J69.0 Pneumonitis due to inhalation of food and vomit; J96.21 Acute and chronic respiratory failure with hypoxia; E43 Unspecified severe protein-calorie malnutrition; G92 Toxic encephalopathy; E11.21 Type 2 diabetes mellitus with diabetic nephropathy; D68.59 Other primary thrombophilia; N39.0 Urinary tract infection, site not specified; J98.11 Atelectasis; J44.1 Chronic obstructive pulmonary disease with (acute) exacerbation; K92.2 Gastrointestinal hemorrhage, unspecified; E11.42 Type 2 diabetes mellitus with diabetic polyneuropathy; I27.20 Pulmonary hypertension, unspecified; I50.9 Heart failure, unspecified; I48.2 Chronic atrial fibrillation; R65.20 Severe sepsis without septic shock; G30.9 Alzheimer's disease, unspecified; F02.80 Dementia in other diseases classified elsewhere, unspecified severity, without behavioral disturbance, psychotic disturbance, mood disturbance, and anxiety; H70.91 Unspecified mastoiditis, right ear; H65.91 Unspecified nonsuppurative otitis media, right ear; K21.9 Gastro-esophageal reflux disease without esophagitis; E78.5 Hyperlipidemia, unspecified; H40.9 Unspecified glaucoma; B96.20 Unspecified Escherichia coli [E. coli] as the cause of diseases classified elsewhere; Z79.01 Long term (current) use of anticoagulants; Z79.899 Other long term (current) drug therapy; Z88.0 Allergy status to penicillin; Z87.891 Personal history of nicotine dependence; Z87.442 Personal history of urinary calculi; M16.0 Bilateral primary osteoarthritis of hip; K80.20 Calculus of gallbladder without cholecystitis without obstruction; G47.33 Obstructive sleep apnea (adult) (pediatric); E66.9 Obesity, unspecified; Z68.29 Body mass index [BMI] 29.0-29.9, adult; F32.9 Major depressive disorder, single episode, unspecified; E03.9 Hypothyroidism, unspecified; R13.10 Dysphagia, unspecified; Z87.820 Personal history of traumatic brain injury; R32 Unspecified urinary incontinence; M12.9 Arthropathy, unspecified
CPT/HCPCS: 36415; 36600; 70030-TC; 70450; 71045; 74018; 83605; 83735; 84100; 84443; 85025; 85730; 87040; 87070; 87077; 87086; 93005; 93307; 94640; 94660; 94664; A4663; J1120; J1580; J1650; J1815; J1940; J1956; J2060; J2270; J2405; J2920; J3370; J3475; J3480; J3490; J3590; J7030; J7060